=== PATIENT | female | born 1955 | race Two or more races ===

== ENCOUNTER 2022-05-08 09:15 | Emergency (ER) | payer OTHER ==
[~2022-05-08] VITALS: Ht 165.1 cm; Wt 81.6 kg
[~2022-05-08 09:15] MED LIST: ADVIL100 M1 PO; PRILOSEC10 MG PO
[2022-05-08] MEDS ORDERED: JANUVIA25 MG PO (09:24)
[2022-05-08] MEDS ORDERED: ATORVASTATIN CA10 MG PO (09:24)
[2022-05-08] MEDS ORDERED: SYNTHROID50 MCG PO (09:24)
== END 2022-05-08 12:11 | disposition home or self-care (01) ==
LOC: ER 09:15
DX: T07.XXXA Unspecified multiple injuries, initial encounter (principal); W18.30XA Fall on same level, unspecified, initial encounter; Y93.9 Activity, unspecified; Y92.481 Parking lot as the place of occurrence of the external cause; Y99.9 Unspecified external cause status

== ENCOUNTER 2023-04-24 07:12 | Outpatient (CLI) | payer OTHER ==
[~2023-04-24 07:12] MED LIST changes: +ATORVASTATIN CA10 MG PO; +JANUVIA25 MG PO; +SYNTHROID50 MCG PO
== END 2023-04-24 07:14 | disposition home or self-care (01) ==
LOC: LAB 07:12
PROVIDERS: ATTEND Internal Medicine Geriatric Medicine
DX: N39.0 Urinary tract infection, site not specified (principal)